=== PATIENT | male | born 1995 | race Caucasian/White ===

== ENCOUNTER → 2023-12-13 | Outpatient (REF) | LOC: M PLAIMG 11:20 | PROVIDERS: ATTEND Nurse Practitioner Family | DX: M26.629 Arthralgia of temporomandibular joint, unspecified side (principal) ==

== ENCOUNTER 2024-06-06 20:18 | Emergency (ER) | payer OTHER ==
[~2024-06-06] VITALS: Ht 182.9 cm; Wt 109.1 kg
[2024-06-06 20:39] VITALS: TEMP 97.6
[2024-06-06] MEDS ORDERED: LEXA5TAB13 PO (20:45)
[2024-06-06 20:49] LABS: HEMOGLOBIN 18.8 g/dl (13.5-17.5); MEAN CORPUSCULAR HEMOGLOBIN 30.7 pg (27.0-33.0); MEAN CORPUSCULAR HGB CONC 35.5 g/dl (32.0-36.5); MEAN CORPUSCULAR VOLUME 86.6 fl (80.0-96.0); PLATELET COUNT, AUTOMATED 335 10^3/uL (150-450); RED BLOOD COUNT 6.12 10^6/uL (4.30-6.10); WHITE BLOOD COUNT 8.9 10^3/uL (4.0-10.0)
[2024-06-06 21:04] LABS: AMPHETAMINES LEVEL URINE NEGATIVE (NEGATIVE)
[2024-06-06 21:05] LABS: BARBITURATES URINE NEGATIVE (NEGATIVE); BENZODIAZEPINES URINE NEGATIVE (NEGATIVE); CANNABINOIDS URINE NEGATIVE (NEGATIVE); COCAINE METABOLITE URINE NEGATIVE (NEGATIVE); METHADONE URINE NEGATIVE (NEGATIVE); OPIATES URINE NEGATIVE (NEGATIVE); PHENCYCLIDINE URINE NEGATIVE (NEGATIVE)
[2024-06-06 21:38] LABS: ALBUMIN 4.4 G/DL (3.2-5.2); ALKALINE PHOSPHATASE 79 U/L (40-129); ALT/SGPT 126 U/L (7.0-40); AST/SGOT 38 U/L (<34); BILIRUBIN,DIRECT 0.2 MG/DL (<0.4); BILIRUBIN,TOTAL 0.5 MG/DL (0.3-1.2); BLOOD UREA NITROGEN 5 MG/DL (9-23); CALCIUM LEVEL 9.8 MG/DL (8.5-10.1); CARBON DIOXIDE LEVEL 28 MMOL/L (20-31); CHLORIDE LEVEL 106 MMOL/L (98-107); CREATININE FOR GFR 1.04 MG/DL (0.70-1.30); GLOMERULAR FILTRATION RATE > 60.0 (>60); GLUCOSE, FASTING 108 MG/DL (60-100); POTASSIUM SERUM 4.3 MMOL/L (3.5-5.1); SALICYLATE LEVEL < 3.0 MG/DL (<30); SODIUM LEVEL 146 MMOL/L (136-145); TOTAL PROTEIN 7.9 G/DL (5.7-8.2)
[2024-06-06 21:42] LABS: THYROID STIMULATING HORMONE 2.051 uIU/ML (0.55-4.78)
[2024-06-06 22:13] LABS: ETHYL ALCOHOL (ETHANOL) 0.367 % (0.000-0.010)
[2024-06-07] MEDS: NICOTINE POLACRILEX 2 MG GUM PO STA (05:33)
[2024-06-07 05:37] VITALS: BP 176/106; O2SAT 96
[2024-06-07] MEDS: LORazepam 2 MG TAB PO PRN (05:45)
[2024-06-07] MEDS: FOLIC ACID 1MG TAB PO SCH (09:41)
[2024-06-07] MEDS: THIAMINE 100 MG TAB PO SCH (09:41)
[2024-06-07] MEDS: MULTIVITAMINS/MINERALS THERAP 1 TAB PO SCH (09:41)
== END 2024-06-07 11:05 | disposition home or self-care (01) ==
LOC: M ED 20:18
DX: F10.14 Alcohol abuse with alcohol-induced mood disorder (principal); I10 Essential (primary) hypertension; E78.5 Hyperlipidemia, unspecified; F17.210 Nicotine dependence, cigarettes, uncomplicated; Z79.899 Other long term (current) drug therapy